=== PATIENT | female | born 1995 | race Caucasian/White ===

== ENCOUNTER 2020-06-21 11:37 | Emergency (ER) | payer MEDICAID, SELFPAY ==
--- NOTE | 2020-06-21 11:42 | USR_ITS ---
PROCEDURE INFORMATION: Exam: US Abdomen, Limited; Right Upper Quadrant Exam date and time: 06/21/2020 12:31 PM Age: 24 years old Clinical indication: Abdominal pain; Flank; Right upper quadrant (ruq); Additional info: Right sided diffuse abd pain following delivery TECHNIQUE: Imaging protocol: US abdomen. Real time ultrasound with image documentation. Limited exam focused on the right upper quadrant. COMPARISON: No relevant prior studies available. FINDINGS: Liver: Normal. No masses. The liver span is 15 cm. Gallbladder: Partially contracted. No gallstones. There is mild gallbladder wall thickening. Common bile duct: Normal. No stones. No dilation. Pancreas: The pancreatic tail is not visible due to gas. Right kidney: Normal. No mass. No hydronephrosis. 10.4 cm x 4.7 cm x 4.1 cm. Aorta: Abdominal aorta has AP measurement 1.5 cm US/US abdomen limited [id number] IMPRESSION: 1. No acute findings. 2. Gallbladder partially contracted no stones
[2020-06-21 12:02] VITALS: BP 103/67; PULSE 92; RESP 16; TEMP 36.7; O2SAT 96; BMI 18.6
[2020-06-21 13:28] LABS: Blood Urine Neg (Negative); Glucose Urine UA Norm (Normal); Ketones Urine Negative (Negative); Protein Urine Neg (Negative); Urine Appearance Hazy (CLEAR); Urine Color Yellow (Yellow); pH Urine 5 (5-7)
[2020-06-21 13:29] LABS: Add Urine Microscopic? YES; Bilirubin Urine Neg (NEGATIVE); Leukocyte Esterase Urine 1+ (Negative); Nitrate Urine Negative (Negative); Urobilinogen Urine Norm (Negative)
[2020-06-21 13:34] LABS: Add Urine Culture? Yes; Bacteria Urine 2+; Mucus Urine 2+; Squamous Epithelial Cell Urine 0-4 (0-5); WBC Urine 15-25 /hpf (0-5)
== END 2020-06-21 13:12 | disposition left against medical advice (07) ==
LOC: ER 13:13
PROVIDERS: Nurse Practitioner Family; Emergency Provider Family Medicine
DX: Z53.21 Procedure and treatment not carried out due to patient leaving prior to being seen by health care provider (principal)
CPT/HCPCS: 76705; 81001; 87086; 99281; 99283